=== PATIENT | female | born 1985 ===

== ENCOUNTER 2024-03-01 05:46 | Emergency (ER) | payer OTHER ==
[~2024-03-01] VITALS: Ht 157.5 cm; Wt 56.7 kg
[2024-03-01] MEDS ORDERED: AMPDEX10 (06:30)
[2024-03-01] MEDS ORDERED: Ibuprofen 600 MG Tab PO ONE (07:20)
[2024-03-01 07:30] VITALS: BP 110/71
[2024-03-01 09:42] LABS: CORONAVIRUS COVID-19 AG Negative (NEGATIVE); INFLUENZA A AG Positive (NEGATIVE); INFLUENZA B AG Negative (NEGATIVE)
[2024-03-01] MEDS ORDERED: OSEL75CA PO (10:04)
== END 2024-03-01 10:11 | disposition home or self-care (01) ==
LOC: ER 05:46
PROVIDERS: Student in an Organized Health Care Education/Training Program
DX: J10.1 Influenza due to other identified influenza virus with other respiratory manifestations (principal); F17.290 Nicotine dependence, other tobacco product, uncomplicated; Z79.899 Other long term (current) drug therapy; Z88.0 Allergy status to penicillin
CPT/HCPCS: 87428-QW; 99283; A9270